=== PATIENT | female | born 1990 | race Hispanic/Latino ===

== ENCOUNTER 2019-07-22 12:20 | Emergency (ER) | payer OTHER ==
[2019-07-22] MEDS ORDERED: Adacel (T-DAP) 0.5 ML SYRINGE ONE (12:36)
== END 2019-07-22 12:50 | disposition home or self-care (01) ==
LOC: NAV ERS 12:20
DX: L98.0 Pyogenic granuloma (principal); Z23 Encounter for immunization
CPT/HCPCS: 90471; 90715

== ENCOUNTER 2025-01-27 03:54 | Emergency (ER) | payer BC, OTHER, SELFPAY ==
[2025-01-27] MEDS ORDERED: Pantoprazole 40 MG VIAL ONE (04:16)
[2025-01-27] MEDS ORDERED: Aspirin Chewable 81 MG TAB ONE (04:16)
[2025-01-27 04:18] LABS: #Basophils 0.1 thou/uL (0.0-0.2); #Eosinophils 0.3 thou/uL (0.0-0.7); #Lymphocytes 2.1 thou/uL (1.20-3.40); #Monocytes 0.6 thou/uL (0.11-0.59); #Neutrophils 9.4 thou/uL (1.40-6.50); %Basophils 0.7 % (0.0-1.0); %Eosinophils 2.2 % (0.0-10.0); %Lymphocytes 17.1 % (21.0-51.0); %Monocytes 4.4 % (0.0-10.0); %Neutrophils 75.6 % (42.0-75.0); Hematocrit 44.0 % (36.0-47.0); Hemoglobin 15.5 g/dL (12.0-16.0); Mean Corpuscular Hemoglobin 28.9 pg (27.0-31.0); Mean Corpuscular Volume 81.9 fl (78.0-98.0); Platelet Count 121 10x3/uL (130-400); Red Blood Cell (RBC) Count 5.38 mill/uL (4.20-5.40); White Blood Cell (WBC) Count 12.4 10x3/uL (4.8-10.8)
[2025-01-27 04:34] LABS: Troponin I Less than 0.010 ng/mL (< 0.028)
[2025-01-27 04:35] LABS: ALT (SGPT) 131 U/L (Less than 34); AST (SGOT) 47 U/L (11-34); Albumin 4.0 g/dL (3.1-4.5); Alkaline Phosphatase 66 U/L (40-110); Anion Gap 17 mmol/L (10-20); BUN (Urea Nitrogen) 10 mg/dL (7.0-18.7); Bilirubin, Total 0.5 mg/dL (0.3-1.2); Calc. Creatinine Clearance 0 mL/min (70-130); Calcium 9.1 mg/dL (7.8-10.44); Carbon Dioxide 25 mmol/L (22-29); Chloride 99 mmol/L (98-107); Globulin 3.1 g/dL (2.4-3.5); Glucose 246 mg/dL (70-105); Lipase 21 U/L (8-78); Potassium 3.7 mmol/L (3.5-5.1); Sodium 137 mmol/L (136-145)
[2025-01-27 05:03] LABS: Pregu Control Background? CLEAR/WHITE (CLR/WHITE); Pregu Control Bar Appear? YES (CONTROL BAR)
[2025-01-27] MEDS ORDERED: Acetaminophen 500 MG TAB ONE (05:05)
[2025-01-27] MEDS ORDERED: Mag-Al Plus 1200/1200/120 MG (30 mL) UDCUP ONE (05:05)
[2025-01-27] MEDS ORDERED: Lidocaine Viscous Sol 2% 15 ml UD Cup ONE (05:05)
[2025-01-27 05:07] LABS: Glucose, Urine (Dipstick) 500 mg/dL (Negative); Leukocyte Negative (Negative); Pregnancy Test - Urine (BHCG) Negative (Negative); Protein, Urine (Dipstick) Trace mg/dL (Neg-Trace); Specific Gravity, Urine 1.025 (1.005-1.030)
[2025-01-27 05:11] LABS: Bacteria/HPF None Seen HPF (None Seen); CAUTI Indications for Culture Dysuria,urgency,freq; Mucous/LPF 2+ LPF (<2+); RBC/HPF None Seen HPF (0-3); WBC/HPF None Seen HPF (0-3)
[2025-01-27 05:12] LABS: Urine Culture Reflex No No
[2025-01-27 05:16] LABS: Cocaine Metabolite Screen Negative (Negative); THC/Cannabinoid Screen PRELIM POSITIVE (Negative); Tricyclic Screen Negative (Negative)
== END 2025-01-27 05:55 | disposition home or self-care (01) ==
LOC: NAV ERS 03:54
DX: K29.00 Acute gastritis without bleeding (principal); K21.9 Gastro-esophageal reflux disease without esophagitis
CPT/HCPCS: 71045; 80053; 80306; 81001; 81025; 83036; 83690; 84484; 85025; 93005; 94760; 96374; J2470

== ENCOUNTER 2025-03-29 22:22 | Emergency (ER) | payer BC ==
[~2025-03-29 22:22] MED LIST: Iopamidol 370 76% 100 ML VIAL ONE
[2025-03-29] MEDS ORDERED: Lidocaine Viscous Sol 2% 15 ml UD Cup ONE (22:46)
[2025-03-29] MEDS ORDERED: Ondansetron PF 4 MG/2 ML Vial ONE (22:46)
[2025-03-29] MEDS ORDERED: Mag-Al Plus 1200/1200/120 MG (30 mL) UDCUP ONE (22:46)
[2025-03-29] MEDS ORDERED: Dicyclomine 20 MG TAB ONE (22:46)
[2025-03-29 22:48] LABS: BHCG - Serum Negative (NEGATIVE); Pregs Control Bar Appear? YES (CONTROL BAR)
[2025-03-29 22:50] LABS: Hematocrit 48.0 % (36.0-47.0); Hemoglobin 16.8 g/dL (12.0-16.0); Mean Corpuscular Hemoglobin 29.2 pg (27.0-31.0); Mean Corpuscular Volume 83.4 fl (78.0-98.0); Platelet Count 111 10x3/uL (130-400); Red Blood Cell (RBC) Count 5.75 mill/uL (4.20-5.40); White Blood Cell (WBC) Count 21.3 10x3/uL (4.8-10.8)
[2025-03-29 22:57] LABS: ALT (SGPT) 130 U/L (Less than 34); AST (SGOT) 90 U/L (11-34); Albumin 4.3 g/dL (3.1-4.5); Alkaline Phosphatase 83 U/L (40-110); Anion Gap 18 mmol/L (10-20); BUN (Urea Nitrogen) 8 mg/dL (7.0-18.7); Bilirubin, Total 0.8 mg/dL (0.3-1.2); Calc. Creatinine Clearance 0 mL/min (70-130); Calcium 10.2 mg/dL (7.8-10.44); Carbon Dioxide 23 mmol/L (22-29); Chloride 102 mmol/L (98-107); Globulin 3.3 g/dL (2.4-3.5); Glucose 169 mg/dL (70-105); Lipase 20 U/L (8-78); Potassium 4.2 mmol/L (3.5-5.1); Sodium 139 mmol/L (136-145)
[2025-03-29 23:01] LABS: MDiff Complete? YES
[2025-03-29 23:02] LABS: Platelet Adequacy Comment Appears Decreased
== END 2025-03-30 00:10 | disposition home or self-care (01) ==
LOC: NAV ERS 22:22
DX: A08.4 Viral intestinal infection, unspecified (principal); E11.9 Type 2 diabetes mellitus without complications; E78.5 Hyperlipidemia, unspecified; Z79.4 Long term (current) use of insulin; Z79.84 Long term (current) use of oral hypoglycemic drugs
CPT/HCPCS: 74177; 80053; 83690; 84703; 85025; 93005; J2405; Q9967